=== PATIENT | female | born 1970 | race Caucasian/White ===

== ENCOUNTER 2018-02-25 17:52 | Emergency (ER) | payer MEDICAID, OTHER ==
[2018-02-25] MEDS ORDERED: Ketorolac 60 MG/2 ML SDV IM ONE (18:22)
--- NOTE | 2018-02-25 18:32 | EDM.PDOC ---
ED HPI GENERAL MEDICAL PROBLEM - General Chief Complaint: Back Pain or Injury Stated Complaint: PT HAS HIP PAIN Time Seen by Provider: 02/25/18 18:04 Source of Information: Reports: Patient History Limitations: Reports: No Limitations - History of Present Illness INITIAL COMMENTS - FREE TEXT/NARRATIVE: HISTORY AND PHYSICAL: History of present illness: Patient is a 47-year-old female who presents to the emergency room today with complaints of left hip pain that radiates down the glutes and ending in the left posterior thigh. She states this has been going on for 3 weeks and has not been improving with [id number] products. Denies any recent injury, trauma or falls. Denies any fever, chills, chest pain, shortness of breath or cough. Denies any abdominal pain, nausea, vomiting, diarrhea, constipation or dysuria. Review of systems: As per history of present illness and below otherwise all systems reviewed and negative. Past medical history: As per history of present illness and as reviewed below otherwise noncontributory. Surgical history: As per history of present illness and as reviewed below otherwise noncontributory. Social history: No reported history of drug or alcohol abuse. Family history: As per history of present illness and as reviewed below otherwise noncontributory. Physical exam: General: Well-developed and well-nourished 47-year-old female. Alert and oriented. Nontoxic appearing and in no acute distress HEENT: Atraumatic, normocephalic, pupils equal and reactive bilaterally, negative for conjunctival pallor or scleral icterus, mucous membranes moist, throat clear, neck supple, nontender, trachea midline. No drooling or trismus noted. No meningeal signs Lungs: Clear to auscultation, breath sounds equal bilaterally, chest nontender. Heart: S1S2, regular rate and rhythm without overt murmur Abdomen: Soft, nondistended, nontender. Negative for masses or hepatosplenomegaly. Negative for costovertebral tenderness. Pelvis: Stable nontender. Genitourinary: Deferred. Rectal: Deferred. Skin: Intact, warm, dry. No lesions or rashes noted. Extremities: Atraumatic, moves all extremities per self without difficulty or deficits. Does have pain when palpating over the left posterior hip into the glutes muscle, pain with flexion and extension at the waist. negative for cords or calf pain. Neurovascular unremarkable. C-spine/Back: No pinpoint vertebral tenderness upon palpation. No crepitus, step -offs or obvious deformities. Denies any numbness or tingling to her distal extremities. Denies any weakness, urinary or fecal incontinence. Neuro: Awake, alert, oriented. Cranial nerves II through XII unremarkable. Cerebellum unremarkable. Motor and sensory unremarkable throughout. Exam nonfocal. Notes: X-ray shows no evidence of fractures or abnormalities. We'll discharge the patient with Flexeril and diclofenac. Supportive care measures were reviewed and discussed. She denies any further questions or concerns at this time. Diagnostics: Hip/Pelvis X-ray Therapeutics: Toradol IM, Norflex IM Prescription: Flexeril (#21) Diclofenac (#20) Impression: Low back pain with sciatica Plan: 1. Please take your medications as directed. You may apply gentle heat to the area for comfort. 2. Follow-up with your primary care provider in the next 1-2 days. Return to the ED as needed and as discussed. Definitive disposition and diagnosis as appropriate pending reevaluation and review of above. left hip/left lower back Pain Score (Numeric/FACES): 7 - Related Data Allergies Allergy/AdvReac Type Severity Reaction Status Date / Time No Known Allergies Allergy Verified 02/25/18 18:07 Home Meds: Home Meds Albuterol Sulfate [Proair Hfa] 8.5 gm IH 02/25/18 [History] Budesonide/Formoterol Fumarate [Symbicort 160-4.5 Mcg Inhaler] 1 puff PO ASDIRECTED 02/25/18 [History] Cyclobenzaprine [Flexeril] 10 mg PO TID PRN #21 tab 02/25/18 [Rx] Diclofenac Sodium [Voltaren] 50 mg PO BID PRN #20 tab.ec 02/25/18 [Rx] Levothyroxine 200 mcg PO ACBREAKFAST 02/25/18 [History] Lisinopril 15 mg PO DAILY 02/25/18 [History] QUEtiapine [SEROquel] 400 mg PO DAILY 02/25/18 [History] cloNIDine [Catapres] 0.1 mg PO DAILY 02/25/18 [History] hydrOXYzine pamoate [Vistaril] 50 mg PO 02/25/18 [History] Past Medical History Other HEENT History: nasal poylps Cardiovascular History: Reports: High Cholesterol, Hypertension Respiratory History: Reports: COPD Gastrointestinal History: Reports: None Genitourinary History: Reports: Renal Disease Musculoskeletal History: Reports: Back Pain, Chronic Neurological History: Reports: None Psychiatric History: Reports: Anxiety, Depression Endocrine/Metabolic History: Reports: Hypothyroidism Hematologic History: Reports: None Oncologic (Cancer) History: Reports: None Dermatologic History: Reports: None - Infectious Disease History Infectious Disease History: Reports: Hepatitis C - Past Surgical History GI Surgical History: Reports: None Social & Family History - Family History Family Medical History: Noncontributory - Tobacco Use Smoking Status *Q: Current Every Day Smoker Years of Tobacco use: 30 Packs/Tins Daily: 1.5 - Recreational Drug Use Recreational Drug Use: No ED ROS GENERAL - Review of Systems Review Of Systems: ROS reveals no pertinent complaints other than HPI. ED EXAM,LOWER BACK PAIN/INJURY - Physical Exam Exam: See Below (See dictation) Course - Vital Signs Last Recorded V/S: Last Vital Signs Temp 96.6 F 02/25/18 18:12 Pulse 87 02/25/18 18:12 Resp 20 02/25/18 18:12 BP 119/68 02/25/18 18:12 Pulse Ox 96 02/25/18 18:12 - Orders/Labs/Meds Orders: Active Orders 24 hr Category Date Time Status Hip Min 1V w Pelvis Lt [CR] Stat Exams 02/25/18 18:22 Taken Meds: Medications Discontinued Medications Generic Name Dose Route Start Last Admin Trade Name Freq PRN Reason Stop Dose Admin Ketorolac Tromethamine 60 mg 02/25/18 18:22 02/25/18 19:09 Toradol IM 02/25/18 18:23 60 mg ONETIME ONE Administration Orphenadrine Citrate 60 mg 02/25/18 18:22 02/25/18 19:09 Norflex IM 02/25/18 18:23 60 mg NOW STA Administration Departure - Departure Time of Disposition: 19:32 Disposition: Home, Self-Care 01 Clinical Impression: Sciatica Qualifiers: Laterality: left Qualified Code(s): M54.32 - Sciatica, left side - Discharge Information Prescriptions: Cyclobenzaprine [Flexeril] 10 mg PO TID PRN #21 tab PRN Reason: Pain Diclofenac Sodium [Voltaren] 50 mg PO BID PRN #20 tab.ec PRN Reason: Pain Instructions: Sciatica, [id number] Referrals: PCP,None [Primary Care Provider] - Forms: ED Department Discharge Additional Instructions: The following information is given to patients seen in the emergency department who are being discharged to home. This information is to outline your options for follow-up care. We provide all patients seen in our emergency department with a follow-up referral. The need for follow-up, as well as the timing and circumstances, are variable depending upon the specifics of your emergency department visit. If you don't have a primary care physician on staff, we will provide you with a referral. We always advise you to contact your personal physician following an emergency department visit to inform them of the circumstance of the visit and for follow-up with them and/or the need for any referrals to a consulting specialist. The emergency department will also refer you to a specialist when appropriate. This referral assures that you have the opportunity for follow-up care with a specialist. All of these measure are taken in an effort to provide you with optimal care, which includes your follow-up. Under all circumstances we always encourage you to contact your private physician who remains a resource for coordinating your care. When calling for follow-up care, please make the office aware that this follow-up is from your recent emergency room visit. If for any reason you are refused follow-up, please contact the [facility] at and asked to speak to the emergency department charge nurse. [facility] [address] [place] [id number] [id number] 1. Please take your medications as directed. You may apply gentle heat to the area for comfort. 2. Follow-up with your primary care provider in the next 1-2 days. Return to the ED as needed and as discussed. - My Orders Last 24 Hours: My Active Orders 02/25/18 18:22 Hip Min 1V w Pelvis Lt [CR] Stat - Assessment/Plan Last 24 Hours: My Active Orders 02/25/18 18:22 Hip Min 1V w Pelvis Lt [CR] Stat
--- NOTE | 2018-02-26 09:18 | CR ---
EXAM DATE: 02/25/18 PATIENT'S AGE: 47 Patient: WILLOW SPRAGUE Facility: [place], [place] Site . Site : 1970 Study: XRay Hip Left w/ pelvis [id number] 7:01:03 PM Ordering Physician: Doctor Ashford Final Report: INDICATION: Hip Pain for 3 weeks, no injury TECHNIQUE: Pelvis radiograph, Hip radiograph 2 views left COMPARISON: None FINDINGS: Bone: No acute fractures or aggressive bone lesions are identified. Joint: The hip joint is unremarkable. The visualized sacroiliac joints are unremarkable in appearance. The pubic symphysis is normal in appearance. Soft tissue: Unremarkable. The visualized bowel gas pattern of the pelvis is unremarkable in appearance. No radiopaque foreign bodies are seen. IMPRESSION: 1. No acute osseous injuries or abnormalities are noted. Dictated by: Riccardo Cao MD @ 02/25/2018 19:08:18 (Electronic Signature) Report Signed by Proxy. [email or web address]
== END 2018-02-25 19:41 | disposition home or self-care (01) ==
LOC: MW.ED 17:52
DX: M54.42 Lumbago with sciatica, left side (principal); E78.00 Pure hypercholesterolemia, unspecified; I10 Essential (primary) hypertension; J44.9 Chronic obstructive pulmonary disease, unspecified; E03.9 Hypothyroidism, unspecified; F41.9 Anxiety disorder, unspecified; F32.9 Major depressive disorder, single episode, unspecified; F17.210 Nicotine dependence, cigarettes, uncomplicated; Z79.899 Other long term (current) drug therapy
CPT/HCPCS: 73501; 96372; 99283; J1885; J2360

== ENCOUNTER 2018-11-07 08:57 | Emergency (ER) | payer MEDICAID, OTHER ==
[2018-11-07] MEDS ORDERED: Ketorolac 60 MG/2 ML SDV IM ONE (09:32)
[2018-11-07] MEDS ORDERED: Ketorolac 30 MG/ML SDV ONE (09:33)
--- NOTE | 2018-11-07 09:34 | EDM.PDOC ---
ED HPI GENERAL MEDICAL PROBLEM - General Chief Complaint: Back Pain or Injury Stated Complaint: BACK AND HIP PAIN Time Seen by Provider: 11/07/18 09:27 Source of Information: Reports: Patient History Limitations: Reports: No Limitations - History of Present Illness INITIAL COMMENTS - FREE TEXT/NARRATIVE: History of present illness: []Patient fell 2 nights ago after her knees gave out on her. She fell forward and her toes bent behind her. Patient and has pain in her low back radiating down her buttock to her knee. She denies any incontinence and is requesting x- rays of her back hips knees and foot. Review of systems: As per history of present illness and below otherwise all systems reviewed and negative. Past medical history: As per history of present illness and as reviewed below otherwise noncontributory. Surgical history: As per history of present illness and as reviewed below otherwise noncontributory. Social history: No reported history of drug or alcohol abuse. Family history: As per history of present illness and as reviewed below otherwise noncontributory. Physical exam: General: Well developed, well nourished in NAD HEENT: Atraumatic, normocephalic, pupils reactive, negative for conjunctival pallor or scleral icterus, mucous membranes moist, throat clear, neck supple, nontender, trachea midline. Lungs: Clear to auscultation, breath sounds equal bilaterally, chest nontender. Heart: S1S2, regular, negative for clicks, rubs, or JVD. Abdomen: NABS, Soft, nondistended, nontender. Negative for masses or hepatosplenomegaly. Negative for costovertebral tenderness. Back shows no focal vertebral tenderness she has diffuse low back tenderness . Pelvis: Stable nontender. Genitourinary: Deferred. Rectal: Deferred. Extremities: Left second toe with deformity, erythema and tenderness, no open lesions, brisk capillary refill, sensation intact negative for cords or calf pain. Neurovascular unremarkable. Neuro: Awake, alert, oriented. Cranial nerves II through XII unremarkable. Cerebellum unremarkable. Motor and sensory unremarkable throughout. Exam nonfocal. Straight leg raising is negative Skin:warm and dry Diagnostics: Lumbar, right toe, left hip and knee x-rays done Therapeutics: Total IM given ED Course: Stable Impression: Fall, low back pain Prescriptions: Diclofenac Plan: Take meds as directed, follow up with your primary care physician, return to ER if symptoms worsen or change. Definitive disposition and diagnosis as appropriate pending reevaluation and review of above. - Related Data Allergies Allergy/AdvReac Type Severity Reaction Status Date / Time No Known Allergies Allergy Verified 02/25/18 18:07 Home Meds: Home Meds Albuterol Sulfate [Proair Hfa] 8.5 gm IH 02/25/18 [History] Budesonide/Formoterol Fumarate [Symbicort 160-4.5 Mcg Inhaler] 1 puff PO ASDIRECTED 02/25/18 [History] Cyclobenzaprine [Flexeril] 10 mg PO TID PRN #21 tab 02/25/18 [Rx] Diclofenac Sodium [Voltaren] 50 mg PO BID PRN #20 tab.ec 02/25/18 [Rx] Levothyroxine 200 mcg PO ACBREAKFAST 02/25/18 [History] Lisinopril 15 mg PO DAILY 02/25/18 [History] QUEtiapine [SEROquel] 400 mg PO DAILY 02/25/18 [History] cloNIDine [Catapres] 0.1 mg PO DAILY 02/25/18 [History] hydrOXYzine pamoate [Vistaril] 50 mg PO 02/25/18 [History] Diclofenac Sodium [Voltaren] 75 mg PO BIDMEALS PRN #20 tab.cr 11/07/18 [Rx] Past Medical History Other HEENT History: nasal poylps Cardiovascular History: Reports: High Cholesterol, Hypertension Respiratory History: Reports: COPD Gastrointestinal History: Reports: None Genitourinary History: Reports: Renal Disease Musculoskeletal History: Reports: Back Pain, Chronic Neurological History: Reports: None Psychiatric History: Reports: Anxiety, Depression Endocrine/Metabolic History: Reports: Hypothyroidism Hematologic History: Reports: None Oncologic (Cancer) History: Reports: None Dermatologic History: Reports: None - Infectious Disease History Infectious Disease History: Reports: Hepatitis C - Past Surgical History GI Surgical History: Reports: None Social & Family History - Family History Family Medical History: Noncontributory - Tobacco Use Smoking Status *Q: Current Every Day Smoker Years of Tobacco use: 30 Packs/Tins Daily: 1 - Recreational Drug Use Recreational Drug Use: No ED ROS GENERAL - Review of Systems Review Of Systems: ROS reveals no pertinent complaints other than HPI. ED EXAM,LOWER BACK PAIN/INJURY - Physical Exam Exam: See Below (See history of present illness) Course - Vital Signs Last Recorded V/S: Last Vital Signs Temp Pulse 77 11/07/18 09:11 Resp 18 11/07/18 09:11 BP 137/80 11/07/18 09:11 Pulse Ox 95 11/07/18 09:11 - Orders/Labs/Meds Meds: Medications Discontinued Medications Generic Name Dose Route Start Last Admin Trade Name Freq PRN Reason Stop Dose Admin Bupivacaine HCl 10 ml 11/07/18 10:41 Sensorcaine-Mpf 0.5% INJECT 11/07/18 10:42 ONETIME ONE Ketorolac Tromethamine 30 mg 11/07/18 09:32 11/07/18 09:44 Toradol IM 11/07/18 09:33 Not Given ONETIME ONE Ketorolac Tromethamine Confirm 11/07/18 09:33 11/07/18 09:39 Toradol Administered 11/07/18 09:34 30 mg Dose Administration 30 mg .ROUTE .STK-MED ONE Lidocaine HCl 5 ml 11/07/18 10:41 Xylocaine-Mpf 1% INJECT 11/07/18 10:42 ONETIME ONE Departure - Departure Time of Disposition: 11:05 Disposition: Home, Self-Care 01 Condition: Good Clinical Impression: Dislocation of toe of left foot Qualifiers: Encounter type: initial encounter Qualified Code(s): S93.105A - Unspecified dislocation of left toe(s), initial encounter - Discharge Information *PRESCRIPTION DRUG MONITORING PROGRAM REVIEWED*: No *COPY OF PRESCRIPTION DRUG MONITORING REPORT IN PATIENT LUCIA: No Prescriptions: Diclofenac Sodium [Voltaren] 75 mg PO BIDMEALS PRN #20 tab.cr PRN Reason: Pain Referrals: PCP,Unknown [Primary Care Provider] - Forms: ED Department Discharge Additional Instructions: The following information is given to patients seen in the emergency department who are being discharged to home. This information is to outline your options for follow-up care. We provide all patients seen in our emergency department with a follow-up referral. The need for follow-up, as well as the timing and circumstances, are variable depending upon the specifics of your emergency department visit. If you don't have a primary care physician on staff, we will provide you with a referral. We always advise you to contact your personal physician following an emergency department visit to inform them of the circumstance of the visit and for follow-up with them and/or the need for any referrals to a consulting specialist. The emergency department will also refer you to a specialist when appropriate. This referral assures that you have the opportunity for follow-up care with a specialist. All of these measure are taken in an effort to provide you with optimal care, which includes your follow-up. Under all circumstances we always encourage you to contact your private physician who remains a resource for coordinating your care. When calling for follow-up care, please make the office aware that this follow-up is from your recent emergency room visit. If for any reason you are refused follow-up, please contact the [facility] at and asked to speak to the emergency department charge nurse. [facility] [address] [place] [phone]
--- NOTE | 2018-11-07 10:21 | CR ---
EXAMINATION: Lumbar spine HISTORY: Fall COMPARISON: None TECHNIQUE: AP and lateral views FINDINGS: The lumbar spinal alignment is normal. Vertebral body heights and disc spaces appear maintained. Bone mineralization is normal. Mild marginal osteophytes are noted. SI joints are symmetric. Mild vascular calcifications. IMPRESSION: Mild degenerative changes without acute findings.
--- NOTE | 2018-11-07 10:24 | CR ---
EXAMINATION: Left hip HISTORY: Pain COMPARISON: 02/25/2018 TECHNIQUE: 2 views FINDINGS: There is no acute osseous abnormality, dislocation, or fracture. Bone mineralization and joint spaces are preserved. Iliopectineal and ilioischial lines are intact. There is borderline coxa valga. IMPRESSION: No acute findings identified.
--- NOTE | 2018-11-07 10:32 | CR ---
EXAMINATION: Right foot, second digit HISTORY: Fall COMPARISON: None TECHNIQUE: 3 views FINDINGS/IMPRESSION: There is dorsal dislocation of the middle second phalanx at the PIP joint. Remaining osseous structures and joint spaces appear intact. Early osteoarthritic changes noted at the first MTP joint.
--- NOTE | 2018-11-07 10:36 | CR ---
EXAMINATION: Left knee HISTORY: Pain COMPARISON: None TECHNIQUE: 3 views FINDINGS/IMPRESSION: There is no acute osseous abnormality, dislocation, or fracture. Bone mineralization and joint spaces are preserved. No soft tissue swelling or joint effusion.
[2018-11-07] MEDS ORDERED: Bupivacaine 0.5% 10 ML SDV INJECT ONE (10:41)
== END 2018-11-07 11:22 | disposition home or self-care (01) ==
LOC: MW.ED 08:57
DX: S93.105A Unspecified dislocation of left toe(s), initial encounter (principal); M54.5 Low back pain; I10 Essential (primary) hypertension; E78.00 Pure hypercholesterolemia, unspecified; F41.9 Anxiety disorder, unspecified; F32.9 Major depressive disorder, single episode, unspecified; E03.9 Hypothyroidism, unspecified; F17.210 Nicotine dependence, cigarettes, uncomplicated; Z79.899 Other long term (current) drug therapy; W19.XXXA Unspecified fall, initial encounter
CPT/HCPCS: 72100; 73502; 73562; 73660; 96372; 99284; J1885; J2001; J3490; 99283

== ENCOUNTER 2018-11-13 13:47 | Emergency (ER) | payer OTHER ==
--- NOTE | 2018-11-13 14:28 | EDM.PDOC ---
ED HPI GENERAL MEDICAL PROBLEM - General Chief Complaint: Lower Extremity Injury/Pain Stated Complaint: INJURED ANKLE Time Seen by Provider: 11/13/18 13:54 Source of Information: Reports: Patient History Limitations: Reports: No Limitations - History of Present Illness INITIAL COMMENTS - FREE TEXT/NARRATIVE: HISTORY AND PHYSICAL: History of present illness: Patient is a 48-year-old female who presents to the emergency room with complaints of right ankle pain after falling 2 days ago. Patient is concerned as she had a ankle fracture requiring surgery involving the right, approximately 5 years ago. 2 days ago she tripped from standing height and had "landed on my ankle". She has been able to bear weight although is concerned that "something is wrong with the hardware". She denies any numbness, tingling or weakness of the extremity. Denies hitting her head or having any loss of consciousness. Patient denies any fever, chills, headache, change in vision, syncope or near syncope. Denies any chest pain, back pain, shortness of breath or cough. Denies any GI or symptoms. Patient has been eating and drinking appropriately. Review of systems: As per history of present illness and below otherwise all systems reviewed and negative. Past medical history: As per history of present illness and as reviewed below otherwise noncontributory. Surgical history: As per history of present illness and as reviewed below otherwise noncontributory. Social history: See social history for further information Family history: As per history of present illness and as reviewed below otherwise noncontributory. Physical exam: General: Well-developed and well-nourished 48-year-old female. Alert and oriented. Nontoxic appearing and in no acute distress. HEENT: Atraumatic, normocephalic, pupils equal and reactive bilaterally, negative for conjunctival pallor or scleral icterus, mucous membranes moist, TMs normal bilaterally, throat clear, neck supple, nontender, trachea midline. No drooling or trismus noted. No meningeal signs. No hot potato voice noted. Lungs: Clear to auscultation, breath sounds equal bilaterally, chest nontender. Heart: S1S2, regular rate and rhythm without overt murmur Abdomen: Soft, nondistended, nontender. Skin: Intact, warm, dry. No lesions or rashes noted. Extremities: Moves all extremities per self without difficulty or deficits, negative for cords or calf pain. Mild right lateral ankle tenderness with palpation. Strong pedal pulses. Mild soft tissue swelling noted. Neurovascular unremarkable. Neuro: Awake, alert, oriented. Cranial nerves II through XII unremarkable. Cerebellum unremarkable. Motor and sensory unremarkable throughout. Exam nonfocal. Notes: X-ray shows possible small chip fracture off the anterior aspect of the talus. Mild overlying soft tissue swelling. We'll place patient in a cam walker boot with crutches. Referral for or Orthopedics given. Supportive care measures were reviewed and discussed. Voices understanding and is agreeable to plan of care. Denies any further questions or concerns at this time. Diagnostics: Right ankle x-ray Therapeutics: [place], CAM walker boot, crutches Prescription: Tramadol (#15) Impression: Right ankle injury Plan: 1. Rest, ice, elevate the affected extremity. Please wear the cam walker boot and use the crutches as directed. 2. Tylenol and/or Ibuprofen as needed for pain management. Tramadol for moderate to severe pain. This medication may cause drowsiness so do not take while driving or needing to be functioning outside of the house. 3. Follow up with the Orthopedic provider as we discussed. Return to the ED as needed and as discussed. Definitive disposition and diagnosis as appropriate pending reevaluation and review of above. right ankle Pain Score (Numeric/FACES): 8 - Related Data Allergies Allergy/AdvReac Type Severity Reaction Status Date / Time No Known Allergies Allergy Verified 11/13/18 14:05 Home Meds: Home Meds Albuterol Sulfate [Proair Hfa] 8.5 gm IH 02/25/18 [History] Budesonide/Formoterol Fumarate [Symbicort 160-4.5 Mcg Inhaler] 1 puff PO ASDIRECTED 02/25/18 [History] Cyclobenzaprine [Flexeril] 10 mg PO TID PRN #21 tab 02/25/18 [Rx] Diclofenac Sodium [Voltaren] 50 mg PO BID PRN #20 tab.ec 02/25/18 [Rx] Levothyroxine 200 mcg PO ACBREAKFAST 02/25/18 [History] Lisinopril 15 mg PO DAILY 02/25/18 [History] QUEtiapine [SEROquel] 400 mg PO DAILY 02/25/18 [History] cloNIDine [Catapres] 0.1 mg PO DAILY 02/25/18 [History] hydrOXYzine pamoate [Vistaril] 50 mg PO 02/25/18 [History] Diclofenac Sodium [Voltaren] 75 mg PO BIDMEALS PRN #20 tab.cr 11/07/18 [Rx] Past Medical History Other HEENT History: nasal poylps Cardiovascular History: Reports: High Cholesterol, Hypertension Respiratory History: Reports: COPD Gastrointestinal History: Reports: None Genitourinary History: Reports: Renal Disease Musculoskeletal History: Reports: Back Pain, Chronic Neurological History: Reports: None Psychiatric History: Reports: Anxiety, Depression Endocrine/Metabolic History: Reports: Hypothyroidism Hematologic History: Reports: None Oncologic (Cancer) History: Reports: None Dermatologic History: Reports: None - Infectious Disease History Infectious Disease History: Reports: None - Past Surgical History GI Surgical History: Reports: None Social & Family History - Family History Family Medical History: Noncontributory - Tobacco Use Smoking Status *Q: Current Every Day Smoker Years of Tobacco use: 35 Packs/Tins Daily: 1 - Recreational Drug Use Recreational Drug Use: No Review of Systems - Review of Systems Review Of Systems: ROS reveals no pertinent complaints other than HPI. ED EXAM, GENERAL - Physical Exam Exam: See Below (See dictation) Course - Vital Signs Last Recorded V/S: Last Vital Signs Temp 97.2 F 11/13/18 14:01 Pulse 86 11/13/18 15:14 Resp 20 11/13/18 15:14 BP 153/85 H 11/13/18 15:14 Pulse Ox 96 11/13/18 15:14 - Orders/Labs/Meds Orders: Active Orders 24 hr Category Date Time Status DME for Discharge [COMM] Stat Oth 11/13/18 14:57 Ordered Meds: Medications Discontinued Medications Generic Name Dose Route Start Last Admin Trade Name Freq PRN Reason Stop Dose Admin Hydrocodone Bitart/Acetaminophen 1 tab 11/13/18 14:57 11/13/18 15:14 [place] 325-5 Mg PO 11/13/18 14:58 1 tab ONETIME ONE Administration Departure - Departure Time of Disposition: 15:00 Disposition: Home, Self-Care 01 Clinical Impression: Right ankle injury Qualifiers: Encounter type: initial encounter Qualified Code(s): S99.911A - Unspecified injury of right ankle, initial encounter - Discharge Information Instructions: Ankle Sprain, [id number] Referrals: PCP,None [Primary Care Provider] - Forms: ED Department Discharge Additional Instructions: The following information is given to patients seen in the emergency department who are being discharged to home. This information is to outline your options for follow-up care. We provide all patients seen in our emergency department with a follow-up referral. The need for follow-up, as well as the timing and circumstances, are variable depending upon the specifics of your emergency department visit. If you don't have a primary care physician on staff, we will provide you with a referral. We always advise you to contact your personal physician following an emergency department visit to inform them of the circumstance of the visit and for follow-up with them and/or the need for any referrals to a consulting specialist. The emergency department will also refer you to a specialist when appropriate. This referral assures that you have the opportunity for follow-up care with a specialist. All of these measure are taken in an effort to provide you with optimal care, which includes your follow-up. Under all circumstances we always encourage you to contact your private physician who remains a resource for coordinating your care. When calling for follow-up care, please make the office aware that this follow-up is from your recent emergency room visit. If for any reason you are refused follow-up, please contact the [facility] Emergency Department at and asked to speak to the emergency department charge nurse. [facility] [address] [place] [id number] [facility] [address] [place] [id number] 1. Rest, ice, elevate the affected extremity. Please wear the CAM walker boot and use the crutches as directed. 2. Tylenol and/or Ibuprofen as needed for pain management. Tramadol for moderate to severe pain. This medication may cause drowsiness so do not take while driving or needing to be functioning outside of the house. 3. Follow up with the Orthopedic provider as we discussed. Return to the ED as needed and as discussed. - My Orders Last 24 Hours: My Active Orders 11/13/18 14:57 DME for Discharge [COMM] Stat - Assessment/Plan Last 24 Hours: My Active Orders 11/13/18 14:57 DME for Discharge [COMM] Stat
--- NOTE | 2018-11-13 14:38 | CR ---
EXAMINATION: Right ankle HISTORY: Fall COMPARISON: None TECHNIQUE: 3 views FINDINGS/IMPRESSION: There is screw and plate fixation of a of the distal fibula with 2 screws fixating the medial malleolus. The ankle mortise and talar dome appear grossly intact. Possible small chip fracture off the anterior aspect of the talus, age indeterminate. Mild overlying soft tissue swelling.
[2018-11-13] MEDS ORDERED: Acetaminophen/HYDROcodone 325-5 MG Tab PO ONE (14:57)
== END 2018-11-13 15:25 | disposition home or self-care (01) ==
LOC: MW.ED 13:47
DX: S99.911A Unspecified injury of right ankle, initial encounter (principal); E78.00 Pure hypercholesterolemia, unspecified; I10 Essential (primary) hypertension; J44.9 Chronic obstructive pulmonary disease, unspecified; F41.9 Anxiety disorder, unspecified; F32.9 Major depressive disorder, single episode, unspecified; F17.210 Nicotine dependence, cigarettes, uncomplicated; Z79.899 Other long term (current) drug therapy; W17.89XA Other fall from one level to another, initial encounter
CPT/HCPCS: 73610; 99283; A9270; 99284